=== PATIENT | male | born 1995 | race Caucasian/White ===

== ENCOUNTER 2021-04-12 17:29 | Inpatient (IN) | payer BC ==
[~2021-04-12] VITALS: Ht 188 cm; Wt 80.8 kg
[2021-04-12 17:52] LABS: BASOPHILS ABSOLUTE AUTO 0.04 K/mm3 (0.00-0.23); BASOPHILS PERCENT AUTO 1 % (0-2); EOSINOPHILS ABSOLUTE AUTO 0.12 K/mm3 (0.00-0.68); EOSINOPHILS PERCENT AUTO 2 % (0-6); Hematocrit 41.4 % (37.0-53.0); IMMATURE GRAN ABSOLUTE AUTO 0.01 K/mm3 (0.00-0.10); IMMATURE GRAN PERCENT AUTO 0 % (0-1); LYMPHOCYTES ABSOLUTE AUTO 1.95 K/mm3 (0.84-5.20); LYMPHOCYTES PERCENT AUTO 31 % (21-46); MONOCYTES ABSOLUTE AUTO 0.56 K/mm3 (0.16-1.47); MONOCYTES PERCENT AUTO 9 % (4-13); Mean Corpuscular HGB 29.8 pg (26.0-34.0); Mean Corpuscular HGB Conc 33.8 g/dL (31.5-36.5); Mean Corpuscular Volume 88 fL (80-100); Mean Platelet Volume 9.6 fL (9.1-12.4); NEUTROPHILS ABSOLUTE AUTO 3.57 K/mm3 (1.96-9.15); NEUTROPHILS PERCENT AUTO 57 % (41-73); Platelet Count 243 K/mm3 (150-400); RDW Coefficient Variation 12.7 % (11.7-14.2); White Blood Cell Count 6.25 K/mm3 (4.00-11.30)
[2021-04-12 18:15] LABS: Ethanol (Alcohol), Blood, Med <3 mg/dL
[2021-04-12 18:17] LABS: Alanine Aminotransfer (ALT/SGP 16 U/L (12-78); Albumin, Blood 4.5 g/dL (3.4-5.0); Albumin/Globulin Ratio 1.4 (0.8-1.8); Alk Phos 48 U/L (50-136); Anion Gap 12 mmol/L (6-16); Aspartate Aminotrans (AST/SGOT 10 U/L (12-37); Bilirubin, Total 0.5 mg/dL (0.1-1.0); Blood Urea Nitrogen 8 mg/dL (8-24); Bun/Creatinine Ratio 10.3 (12.0-20.0); CO2, Blood 21 mmol/L (21-32); Calcium, Blood 9.2 mg/dL (8.5-10.1); Chloride, Blood 108 mmol/L (98-108); Creatinine, Blood 0.78 mg/dL (0.60-1.20); Globulin, Blood 3.3 g/dL (2.2-4.0); Glomerular Filtration Rate >60 (60-); Glucose, Blood 98 mg/dL (70-99); Potassium, Blood 3.4 mmol/L (3.5-5.5); Sodium, Blood 141 mmol/L (136-145); Total Protein, Blood 7.8 g/dL (6.4-8.2)
[2021-04-12 18:21] LABS: U Cannabinoids Screen DETECTED; U Cocaine Screen DETECTED; U Opiates Screen DETECTED
[2021-04-12 18:22] LABS: U Amphetamine Screen Not Detected; U Barbituate Screen Not Detected; U Benzodiazapine Screen Not Detected; U Buprenorphine Screen Not Detected; U Methadone Screen Not Detected; U Methamphetamine Screen Not Detected; U Oxycodone Screen Not Detected; U Phencyclidine Screen Not Detected; U Propoxyphene Screen Not Detected
--- NOTE | 2021-04-12 22:10 | NUR ---
RESTRAINT ORDER PAPER ORDER FOR JOE SOFT WRIST RESTRAINTS PLACED IN CHART FOR 04/12/20 @ 7249.
--- NOTE | 2021-04-12 22:30 | NUR ---
ASSUMED CARE PATIENT ARRIVED TO ICU 3 FROM ED ON VENTILATOR SET AT AC/VC 14/550/5/30% WITH SPO2 100% RR 14. TEMP JOHNSON IS PATENT AND DRAINING TO GRAVITY. PROPOFOL INF @ 60MCG/KG/MIN AND NS @ 100ML/HR. 18G TO RT FA AND 20G TO LT WRIST PATENT. PATIENT IS PULLING ON RESTRAINTS AND KICKING LEGS IN BED. REPORT COMPLETED WITH RN CARDIOVASCULAR.
[2021-04-12 23:36] LABS: CPK Creatine Kinase 82 U/L (39-308)
--- NOTE | 2021-04-13 01:22 | NUR ---
PARENTS VISIT PATIENT'S MOTHER, HANNAH, AND FATHER, ANTHONY, VISITED PATIENT. HISTORY PROVIDED AND UPDATES GIVEN. PARENTS ADVISED OF VISITOR POLICY. PHONE NUMBERS PLACED IN CHART BELOW: HANNAH: [phone] ANTHONY: [phone]
--- NOTE | 2021-04-13 02:42 | NUR ---
INCREASED RESTLESSNESS/AGITATION PATIENT BEGAN GETTING RESTLESS IN BED; PULLING ON RESTRAINTS, LIFTING HEAD IN BED, KICKING LEGS. PRECEDEX STARTED @ 0.3MCG/KG/HR-INCREASED TO 0.5MCG/KG/HR AFTER 15 MINUTES D/T NO IMPROVEMENT IN AGITATION. CALL MADE TO DR. MCNEAL WITH NEW ORDER FOR ATIVAN 1MG IV X 1 TO ASSESS FOR EFFECTIVENESS AND ENSURE NO ALLERGIC REACTION. PATIENTS RESTLESSNESS AND AGITATION IMPROVED.
[2021-04-13 03:41] LABS: BASOPHILS ABSOLUTE AUTO 0.04 K/mm3 (0.00-0.23); BASOPHILS PERCENT AUTO 0 % (0-2); EOSINOPHILS ABSOLUTE AUTO 0.01 K/mm3 (0.00-0.68); EOSINOPHILS PERCENT AUTO 0 % (0-6); Hematocrit 40.8 % (37.0-53.0); Hemoglobin 13.6 g/dL (13.5-17.5); IMMATURE GRAN ABSOLUTE AUTO 0.07 K/mm3 (0.00-0.10); IMMATURE GRAN PERCENT AUTO 0 % (0-1); LYMPHOCYTES ABSOLUTE AUTO 0.83 K/mm3 (0.84-5.20); LYMPHOCYTES PERCENT AUTO 5 % (21-46); MONOCYTES ABSOLUTE AUTO 0.84 K/mm3 (0.16-1.47); MONOCYTES PERCENT AUTO 5 % (4-13); Mean Corpuscular HGB 29.2 pg (26.0-34.0); Mean Corpuscular HGB Conc 33.3 g/dL (31.5-36.5); Mean Corpuscular Volume 88 fL (80-100); Mean Platelet Volume 9.8 fL (9.1-12.4); NEUTROPHILS ABSOLUTE AUTO 16.86 K/mm3 (1.96-9.15); NEUTROPHILS PERCENT AUTO 90 % (41-73); Platelet Count 230 K/mm3 (150-400); RDW Coefficient Variation 12.9 % (11.7-14.2); RDW Standard Deviation 41.2 fL (35.1-46.3); Red Blood Cell Count 4.65 M/mm3 (4.30-5.90); White Blood Cell Count 18.65 K/mm3 (4.00-11.30)
[2021-04-13 04:03] LABS: Alanine Aminotransfer (ALT/SGP 17 U/L (12-78); Albumin, Blood 4.1 g/dL (3.4-5.0); Albumin/Globulin Ratio 1.5 (0.8-1.8); Alk Phos 44 U/L (50-136); Anion Gap 8 mmol/L (6-16); Aspartate Aminotrans (AST/SGOT 10 U/L (12-37); Bilirubin, Total 0.7 mg/dL (0.1-1.0); Blood Urea Nitrogen 7 mg/dL (8-24); Bun/Creatinine Ratio 8.6 (12.0-20.0); CO2, Blood 24 mmol/L (21-32); Calcium, Blood 8.8 mg/dL (8.5-10.1); Chloride, Blood 113 mmol/L (98-108); Creatinine, Blood 0.82 mg/dL (0.60-1.20); Globulin, Blood 2.8 g/dL (2.2-4.0); Glomerular Filtration Rate >60 (60-); Glucose, Blood 121 mg/dL (70-99); Potassium, Blood 3.7 mmol/L (3.5-5.5); Sodium, Blood 145 mmol/L (136-145); Total Protein, Blood 6.9 g/dL (6.4-8.2)
--- NOTE | 2021-04-13 06:17 | NUR ---
SHIFT SUMMARY PATIENT REMAINED INTUBATED T/O SHIFT ON AC/VC 14/550/10/30%; SPO2 HIGH 90'S-100%. PATIENT WAS AGITATED AND RESTLESS FOR MAJORITY OF SHIFT UNTIL 1MG ATIVAN IV GIVEN SEDATION ADJUCT TO PROPOFOL @ 80MCG/KG/MIN AND PRECEDEX @ 0.5MCG/KG/HR ALONG WITH FENTANYL 25MCG IV X 1 AND FENTANYL 50MCG IV X 1. PATIENT IS NOW RESTING COMFORTABLY AND NOT PULLING ON RESTRAINTS/KICKING IN BED. PATIENT URINE WAS YELLOW AND CLEAR T/O SHIFT BUT BEGAN TURNING CLOUDY AND IS NOW GREEN TINGED. REMAINED IN NSR WITH RATE 60'S AND BP STABLE 110'S-120'S CBP MAPS GREATER THAN 65. NOT FOLLOWING COMMANDS, BUT ATTMEPTING TO OPEN EYES WHEN PERIODS OF AGITATION OCCUR. NO OTHER MAJOR CHANGES DURING SHIFT.
--- NOTE | 2021-04-13 08:20 | NUR ---
ASSUMED CARE BEDSIDE REPORT FROM TAM FERNÁNDEZ AT 0700. PT INTUBATED AND SEDATED. VENT SETTINGS AC/VC 14/550/5/30%. LUNGS CLEAR, SCANT SECRETIONS. NO COUGH/GAG/SWALLOW REFLEX. PROPOFOL AND PRECEDEX GTT FOR SEDATION. PER NOC RN, PT HIGHLY AGITATED c LIGHT SEDATION. SR, RATE 60'S. BP STABLE. OGT TO LIS, BROWN EMESIS OUT. JOHNSON PATENT, DRAINING CLEAR GREEN URINE TO GRAVITY. SKIN C/D/I, ECCHYMOSIS TO CHEST. PIV X 2. WILL CONTINUE TO MONITOR.
--- NOTE | 2021-04-13 11:55 | NUR ---
EXTUBATION SEDATION PLACED ON STANDBY. PT FOLLOWING COMMANDS, SLIGHTLY AGITATED. ABLE TO REDIRECT. RT PLACED ON SPONT, TOLERATING WELL. DR BURGER AT BEDSIDE. PLAN FOR EXTUBATION. EXT AT 1138. RESTRAINTS REMOVED. PT FOLLOWING COMMANDS. SOFT SPOKEN, GARBLED SPEECH. PRODUCTIVE COUGH. ABLE TO MANAGE SECRETIONS shena WARNER. PT DENIES SI. GAVE VERBAL CONSENT TO UPDATE PARENTS.
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
--- NOTE | 2021-04-13 21:55 | NUR ---
MEDICATION REQUESTS BY PATIENT PATIENT BEGAN REQUESTING FURTHER MEDICATIONS WITH PROMETHAZINE, TEMAZEPAM, AND XANAX. AFTER EXPLAINING WHY WE ARE LIMITING THE AMOUNT OF MEDICATIONS BEING GIVEN AT THIS TIME, PATIENT BECAME MORE AGITATED BUT STILL COOPERATIVE. CALL MADE TO DR. MCNEAL FOR FURTHER INSTRUCTION ON MEDICATION LIMITS FOR PATIENT. RECIEVED ORDERS FOR PROMETHAZINE 12.5-25MG PO Q6H PRN NAUSEA, MELATONIN 5MG PO QD HS FOR INSOMNIA, AND A ONE TIME ADDITIONAL DOSE OF ATIVAN 1MG PO IF PATIENT BECOMES INCREASINGLY AGITATED/ANXIOUS.
--- NOTE | 2021-04-13 23:35 | NUR ---
REPORT CALLED TO PRADEEP RODRIGUEZ ON MEDICAL FLOOR. PATIENT ASSIGNED TO ROOM 310.
--- NOTE | 2021-04-14 04:42 | NUR ---
SHIFT SUMMARY PATIENT WAS CALM AND COOPERATIVE T/O SHIFT. AFTER RECIEVING ATIVAN 1MG X 2 DOSES, MELATONIN 5MG, AND PROMETHAZINE 25MG ALL PO HE REPORTED IMPROVED ANVIETY AND NAUSEA, ALTHOUGH STILL REPORTED DIFFICULTY SLEEPING. PATIENT REMAINS INDEPENDENT WITH HIS CARE. NO OTHER MAJOR CHANGES DURING SHIFT.
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
--- NOTE | 2021-04-14 15:08 | NUR ---
DISCHARGE INSTRUCTIONS GIVEN. AMB OUT. PARENTS AND GIRLFRIEND IN PARKING LOT TO ASSOCIATE PROFESSOR OF GEOGRAPHY PT.
== END 2021-04-14 15:08 | disposition home or self-care (01) | DRG 917 ==
LOC: ER 17:29 → ICUE 21:29 → ICUW 21:29 → ICUE 22:16
PROVIDERS: Emergency Medicine; ADMIT Internal Medicine
PROC: 0BH17EZ Insertion of Endotracheal Airway into Trachea, Via Natural or Artificial Opening (ICD-10-PCS; principal; 2021-04-12)
PROC: 5A1935Z Respiratory Ventilation, Less than 24 Consecutive Hours (ICD-10-PCS; 2021-04-12)
DX: T40.5X1A Poisoning by cocaine, accidental (unintentional), initial encounter (principal); G92.8 Other toxic encephalopathy; J96.01 Acute respiratory failure with hypoxia; T40.601A Poisoning by unspecified narcotics, accidental (unintentional), initial encounter; Z78.1 Physical restraint status; T40.721A Poisoning by synthetic cannabinoids, accidental (unintentional), initial encounter; T43.3X1A Poisoning by phenothiazine antipsychotics and neuroleptics, accidental (unintentional), initial encounter; T51.91XA Toxic effect of unspecified alcohol, accidental (unintentional), initial encounter; E87.6 Hypokalemia; T42.4X1A Poisoning by benzodiazepines, accidental (unintentional), initial encounter; X58.XXXA Exposure to other specified factors, initial encounter
CPT/HCPCS: 36415; 51702; 70450; 71045; 80053; 82550; 83735; 84484; 85025; 93005; 93010; 94002; 94003; 96374-59; 99291-25; A9270; G0480; J1200; J1650; J2060; J2704; J3010; J3480; J7030; J7050